=== PATIENT | male | born 1940 | race Caucasian/White ===

== ENCOUNTER 2020-07-22 12:30 | Inpatient (IN) | payer OTHER, BC ==
[~2020-07-22] VITALS: Ht 170.2 cm; Wt 58.4 kg
[~2020-07-22 12:30] MED LIST: ADVIL100 M2; ASPIRIN EC81 M1 PO; CYMBALTA30 MG PO; GINKGO BILOBA40 M1 PO; HYTRIN 5 M5 MG/1 CAP PO; MAGNESIUM400 MG PO; MULTIVITAMINS1 EAC7 PO; OMEGA-3 + VITA1 EAC1 PO
[2020-07-22] MEDS ORDERED: NORVASC10 MG PO (13:06)
[2020-07-22] MEDS ORDERED: CALCIUM500 MG PO (13:06)
[2020-07-22] MEDS ORDERED: DEPAKOTE 250MG250 M1 PO (13:07)
[2020-07-22] MEDS ORDERED: LIPITOR 20 MG T20 M1 PO (13:07)
[2020-07-22] MEDS ORDERED: FAMOTIDINE 20 M20 MG PO (13:07)
[2020-07-22] MEDS ORDERED: DESVENLAFAXINE50 MG PO (13:07)
[2020-07-22] MEDS ORDERED: SUPER THERAVIT1 EACH PO (13:08)
[2020-07-22] MEDS ORDERED: REVIA 50 MG TAB50 M1 PO (13:08)
[2020-07-22] MEDS ORDERED: MAGNESIUM250 M1 PO (13:08)
[2020-07-22] MEDS ORDERED: NAMENDA 10 MG T10 MG PO (13:08)
[2020-07-22] MEDS ORDERED: DESYREL150 MG PO (13:09)
[2020-07-22] MEDS ORDERED: ZOLOFT 50 MG TA50 MG PO (13:09)
[2020-07-22] MEDS ORDERED: CHOLECALCIFEROL1 GM PO (13:09)
[2020-07-22 14:23] VITALS: BP 131/71
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
[2020-07-22 19:10] VITALS: BP 108/74
--- NOTE | 2020-07-23 00:57 | NUR ---
Upon initial assessment at approx 2100 hrs patient observed sitting in day room talking with staff. Patient had fair eye contact with this Nurse and was pleasant. Staff stated that he had been wandering around the unit and had gone into some of his peers' rooms then had to be redirected. Patient can be difficult to redirect at times but has not been aggressive or threatening this shift. He does picker and sorter load and unload objects and put them in his shirt and pants pockets. Items were removed from pockets once patient was changed into scrub pants and t-shift. Pt's belt and personal items placed in his locker. Patient was alert throughout the shift but oriented to self only. He denied any anxiety or depression. He did state that he had pain but was unable to state location or intensity of pain. Due to hx of reported incontinence staff instructed to toilet patient q 2 hrs when awake. Patient was compliant with q 2 hr toileting this shift and had no incontinence. He was able to toilet himself without any assist, just direction. Patient was also medication compliant and takes all of his meds whole with water. He states he has a good appetite and ate a good supper as well as hs snack. He likes to chew on ice. Patient sat in day room and conversed with staff until bed time. He agreed to go to his room and was assisted with changing his clothes. Once in bed he fell asleep fairly quick. As of now 0113 hrs patient has remained asleep. Will continue to monitor and follow plan of care. Q 12 min safety rounds per protocol.
[2020-07-23 05:51] LABS: ANION GAP 9 mmol/L (7-16); BUN 14 mg/dL (7-18); CALCIUM 9.3 mg/dL (8.5-10.1); CHLORIDE 104 mmol/L (98-107); CO2 26 mmol/L (21-32); CREATININE 0.9 mg/dL (0.7-1.3); GLUCOSE 81 mg/dL (74-106); SODIUM 139 mmol/L (136-145)
[2020-07-23 05:52] LABS: POTASSIUM 4.6 mmol/L (3.5-5.1)
--- NOTE | 2020-07-23 06:00 | NUR ---
At 0500 hrs lab came to pt's room for lab draw. Patient awoke confused but cooperative. He agreed to sit on the bed for blood draw. Patient complied to lab draw x 2 separate venipunctures. Lab draw completed by lab staff without incident. Patient was in good mood. He walked to the bathroom to urinate then returned to bed. He has had no incontinence this shift. Patient sleeping at this time 0555 hrs.
[2020-07-23 06:03] LABS: CHOLESTEROL 178 mg/dL (<200); HDL CHOLESTEROL 89 mg/dL (>40); LDL CHOLESTEROL 77 mg/dL (<100); TRIGLYCERIDE 64 mg/dL (<150); VLDL 13 mg/dL (<40)
[2020-07-23 06:09] LABS: SERUM ASSESSMENT Clear
[2020-07-23 10:13] VITALS: BP 135/75
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
--- NOTE | 2020-07-23 19:23 | NUR ---
pt was alert and oriented to self, ASSESSments completed, vss. pt took meds whole, no difficulty noted. AMBULATES WITH A STEADY GAIT. Pt was incontinent x3. Denies si/hi. denies pain. Pt was wandering in the moreno ways and into other pt room. pt pockets food items, and foam cups in his pants. pt was calm and co-operative with care. Ate all his meals. At 1855 pt got very aggressive with staff, pt was redirected. staff walked around the unit with pt to calm pt down. AT THIS TIME PT IS SITTING IN THE DAY ROOM. wILL CONTINUE TO MONITOR.
[2020-07-23 20:20] VITALS: BP 116/72
[2020-07-24 00:06] LABS: GLYCOHEMOGLOBIN (HGB A1C) 5.2 % (4.8-5.6)
--- NOTE | 2020-07-24 00:07 | NUR ---
Initial assessment on 07/23/20 at 2000 hrs. Patient is observed in the day room sitting at table near staff. Patient is alert/oriented to self. He has good eye contact with this Nurse and smiles when greeted by this Nurse. Patient states he remembers this Nurse from the previous pm shift. He denies any complaints of pain. Denies any SI/HI, anxiety or depression. Patient answers assessment questions appropriately, is relaxed and pleasant. It was reported that pt continues to be invasive of peers' space but that behavior not witnessed on this shift. 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 Patient toileted q 2 hrs this shift and he was compliant and continent. After each urination patient spends approx 2 minutes cleaning the toilet seat and area around the toilet with toilet paper. He then washes his hands. Patient walked the halls with staff for awhile this shift, ate his hs snack then agreed to go to bed around 2200 hrs. Patient has been sleeping since that time. Will continue to monitor and follow plan of care. Q 12 min safety checks per protocol.
[2020-07-24 09:48] VITALS: BP 122/87
--- NOTE | 2020-07-24 13:38 | NUR ---
JOSH contacted the Pt's Rediscover Policy Analyst, Erick Calderon [phone]. JOSH left a message requeting a call back
--- NOTE | 2020-07-24 14:08 | NUR ---
0700 ASSUMED CARE OF PATIENT, PATIENT CALM AND ORIENTED TO SELF. PATIENT AMB IN DRIVER WANDERING. FEEDS SELF FOR BREAKFAST. MEDICATION TAKEN WHOLE WITH SOME GUIDANCE. ENTERS OTHER PEERS ROOM AND REDIRECTS WELL. CONTINUES ASKING FOR SHOES. PATIENT FOUND IN ROOMS FIXING BEDS. WILL CONTINUE TO OBSERVE
[2020-07-24 19:57] VITALS: BP 105/71
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
--- NOTE | 2020-07-25 00:30 | NUR ---
MELISSA APPEARS WELL GROOMED AND IS DRESSED APPROPRIATE. HE PRESENTS WITH A FULL AFFECT AND HIS MOOD IS CONGRUENT. WHEN ASKED TO DESCRIBE HIS MOOD HE STATED "WELL, I JUST DO NOT REMEMBER". HE DOES HAVE SOME CONFUSION AND IS ONLY ORIENTED TO PERSON. HE HAS BEEN WALKING THE HALLWAYS AND CAN BE INTRUSIVE AT TIMES. HE IS COOPERATIVE WITH ASSESSMENT AND DENIES ANY SI/HI/AH/VH AT THIS TIME. HE IS MED COMPLIANT WITH ENCOURAGEMENT. HE TAKES HIS MEDS WITH PUDDING WHOLE. HE DID REPEATEDLY SPIT OUT HIS PILLS AND REQUIRED MULTIPLE ENCOURAGEMENTS TO TAKE THE PILLS. MELISSA IS FIXATED ON KEN AND STYROFOAM. HE PLACES ITEMS IN THE WASITBAND OF HIS PANTS. HE CURRENTLY DENIES ANY PAIN AND PRESENTED WITH NO PHYSICAL CHANGES. HIS BED IS IN THE LOWEST POSITION AND HE IS WEARING NON SKID SOCKS. HE DOES OFTEN REPORT HE WOULD LIKE TO HAVE SHOES ON. WILL CONTINUE TO MONITOR AND FOLLOW PLAN OF CARE. Q 12 MIN SAFETY ROUNDS PER PROTOCOL.
[2020-07-25 08:58] VITALS: BP 132/77
[2020-07-25 08:59] VITALS: BP 127/60
--- NOTE | 2020-07-25 19:05 | NUR ---
0700 ASSUMED CARE OF PATIENT, PATIENT IN BED AT THAT TIME. PATIENT AMB WITH STEADY GAIT. MEDICATION TAKEN WHOLE IN AM AND CRUSHED LATER IN DAY. CONFUSED ASKING TO GET OUT OF DOORS. WANDERING INTO OTHER ROOMS. EASILY REDIRECTED, VS STABLE, BS ACTIVE, LS CLEAR. ABM SOFT. PATIENT FOLOWING STAFF. PATIENT FEEDS SELF EATING WELL. PATIENT CONTINENT WHILE ON 2 HR TOILETING SCHEDULE.
--- NOTE | 2020-07-26 02:18 | NUR ---
[facility] AT 1900. AT THIS TIME KERI IS PACING HALLWAYS AND ENTERING ROOMS THAT ARE NOT HIS. PT. REORIENTED TO HIS ROOM AND EDUCATED TO NOT ENTER OTHER ROOMS. KERI APPEARS WELL GROOMED AND IS DRESSED IN HOSPITAL SCRUBS. HE DID HAVE HIS BRIEF ON THE OUTSDIE OF THE SCRUB PANTS AND WAS CHANGED. HE PRESENT WITH CONFUSION AND IS ONLY ORIENTED TO HIMSELF. HE IS COOPERATIVE WITH HIS ASSESSMENT AND NO ACUTE CHANGES WERE NOTED. HE IS MED COMPLIANT BUT DOES REQUIRE ENCOURAGEMENT TO TAKE HIS MEDS. PT CONTINUES TO COLLECT CUPS AND OTHER OBJECTS AND HIDES THEM IN HIS PANTS. WHEN ASKED TO DESCRIBE HIS MOOD HE STATED "FOLLOW ME AND THESE SONS OF LAMBERT ARE HERE. I NEED MY AND SHE IS THE LOVE AND THE ONE THAT LOVES ME". KERI HAS POOR EYE CONTACT HIS REPSONSES ARE OFTEN DELAYED. STAFF CONTINUE TO MONITOR FOR INTRUSIVE BEHAVIORS. WILL CONTINUE TO MONITOR AND FOLLOW PLAN OF CARE. Q 12 MIN CHECKS PER PROTOCOL.
[2020-07-26 09:56] VITALS: BP 102/65
[2020-07-26 10:27] VITALS: BP 98/56
--- NOTE | 2020-07-26 14:11 | NUR ---
3314 RESUMMED CARE FROM OVERNIGHT SHIFT THIS AM, PATIENT SITTING QUIETLY IN DAY ROOM. PATIENT ATE BREAKFAST TOOK MEDICATION WITHOUT INCIDENCE PATIENT ALERT ORIETED TO SELF. PATIENT HAS SOME CONFUSION AND WANDERS INTO OTHER PATIENTS ROOM. PATIENTS ABDOMEN SOFT BOWEL SOUNDS PRESENT PATIENTS LUNGS CLEAR. PATIENT PARTICPATES IN GROUP WILL CONTINUE TO MONITOR PATIENT FOR SAFETY AND BEHAVIORS.
[2020-07-26 19:07] VITALS: BP 137/75
[2020-07-26 20:02] VITALS: BP 137/75
--- NOTE | 2020-07-27 03:47 | NUR ---
Assumed care on 07/26/20 @ 19:15, seated in the day room at a table. Speaks when addressed by staff, watching activity around hhim. A&Ox4 Buckley fall score of 55. continuing VS for CIWA @ 2300 132/76 89 98.6 16 100% At 0300 VS 124/81 87 17 97.4 100% No trembling or sweating noted, denies headache. A&Ox4. No n/v observed nor reported. Retired to bed @ HS, and has slept in bed with bed in low position, bed alarm set. Will continue to monitor as per unit protocol.
--- NOTE | 2020-07-27 03:59 | NUR ---
Assumed care on 07/26/20 @ 19:15, ambulating throughout the mileu, entering others peers rooms, taking others things and putting them in his pants. Intrusive and confused. Both continent and incontinent, needs q2hour toileting. Will continue to monitor as per unit protocol for safety and comfort.
[2020-07-27 09:14] VITALS: BP 121/68
[2020-07-27 09:35] VITALS: BP 121/68
--- NOTE | 2020-07-27 10:42 | NUR ---
1040 RESUMMED CARE FROM OVERNIGHT SHIFT THIS AM, PATIENT ALERT ORIENTED TO SELF ONLY. PATIENT HAS CONFUSION IS SOMETIMES INTRUSIVE GOING IN OTHER PATIENTS ROOM. HE COLLECTS CUPS AND ANYTHING HE CAN FIND AND STUFFS THEM IN IS PANTS. PATIENT UNABLE TO TELL ME ABOUT SI/HI/AH/VH AT PRESENT DUE TO COGNITIVE DO. PATIENTS ABDOMEN SOFT BOWEL SOUNDS PRESENT PATIENTS LUNGS CLEAR. PATIENT HAS NOT SHOWN ANY AGGRESSIVE BEHAVIORS. HE JUST WANDERS AROUND THE UNIT AND TRIES TO OPEN DOORS. WILL CONTINUE TO MONITOR PATIENT FOR SAFETY AND BEHAVIORS.
[2020-07-27 19:55] VITALS: BP 107/66
--- NOTE | 2020-07-28 04:25 | NUR ---
KERI APPEARS WELL GROOMED AND IS DRESSED APPROPRIATE. HE PRESENTS WITH A FULL AFFECT AND DISORGANIZED THOUGHTS. HE IS ALERT TO ONLY PERSON . HE CONTINUES TO WANDER AND TEST DOORS. HE IS INTRUSIVE AND ENTERS OTHERS ROOMS AND REQUIRES FREQUENT REDIRECTIONS. HE IS CONFUSED AND NEEDS PROMPTING TO COMPLETE TASKS. HE CONTINUES TO HECTOR ITEMS IN HIS PANTS. HIS PHYSICAL ASSESSMENT PRESENTED WITH NO ACUTE CHANGES. HEART SOUNDS S1 S2 AND REGUALR, LUNG SOUNDS CLEAR, BOWEL SOUNDS ACTIVE AND ABDOMEN FLAT AND NON TENDER. HE IS MEDICATION COMPLIANT. HE IS ON Q4H VITAL SIGNS WHILE AWAKE FOR INCEASE IN HIS PROPRANOLOL. HE IS ON A Q2H TOLIETING SCHEDULE. WILL CONTINUE TO MONITOR AND FOLLOW PLAN OF CARE. Q 12 MIN CHECKS PER PROTOCOL.
[2020-07-28 09:50] VITALS: BP 104/61
--- NOTE | 2020-07-28 14:58 | NUR ---
0700 ASSUMED CARE OF PATIENT, PATIENT AMB WITH A STEADY GAIT. ATE 100% OF BREAKFAST WITHOUT ASSISTANCE. MEDICATIONS TAKEN WHOLE WITHOUT DIFFICULTY. LS CLEAR, BS ACTIVE. PATIENT ALERT AND ORIENTED X1. PATIENT WANDERS IN DRIVER LOOKING FOR OPEN DOORS. PATIENT EASILY REDIRECTABLE. CONTINUES TO STUFF CUPS AND TOWELS IN PANTS. AMB WITH STEADY GAIT. WILL CONTINUE TO OBSERVE
[2020-07-28 19:44] VITALS: BP 108/56
[2020-07-28 21:30] VITALS: BP 104/61
--- NOTE | 2020-07-29 01:15 | NUR ---
RESUMED PT CARE AT 1900. PT AT THE DINING AREA . HE IS ALERT AND CONFUSED. AMBULATES AND HE DENIES SI/AVH/HI. ABLE TO VERBALIZE SOME NEEDS. LUNGS ARE CLEAR BS ACTIVE X 4 QUAD. NO NEW SKIN ISSUES NOTED THIS SHIFT.HE TOOK HIS MEDS WHOLE AND SNACKS WAS ALSO OFFERED.PT IS CALM, PICKS THINGS AND STORE UP UNDER HIS PANTS. HE WARNDER LATER PART OF THE SHIFT AND WAS REDIRECTED BY STAFF. HE COMPLAINED OF PAINS TO HIS BACK AND PRN TYLENOL WAS GIVEN WITH SOME GOOD EFFECT. HE IS RESTING IN BED NOW WITH BED AT LOW POSTION, LOCKED AND ALARM IN PLACE. NON SKID SOCK IS APPLIED,ROOM IS FREE OF CLUSTERS. HE IS CONTINET OF BOWEL AND BLADDER. STAFF CONTINUES WITH Q 12 MINS CHECKS.
[2020-07-29 09:06] VITALS: BP 110/81
--- NOTE | 2020-07-29 11:33 | NUR ---
Referral sent to [facility]
--- NOTE | 2020-07-29 11:42 | NUR ---
Nutrition followup: Pt continues on [facility] unit with unspecified dementia/behavioral disturbance. Eating very well, 80-100% of meals, 100% supplements/snacks. Receives ensure enlive daily. Recent weight of 128# which is down from reported UBW 140#. had reported some weight loss at memory care due to pt wandering/walking a lot. Unsure if 128# accurate so would recommend obtain new weight. Can also increase ensure to BID due to good intake of the supplement. Pt expected to D/C within 24-48 hrs. Keep low risk.
--- NOTE | 2020-07-29 13:14 | NUR ---
PATIENT HAS BEEN UP, AND OUT ON THE UNIT, WANDERING, COLLECTING ITEMS, PUTTING THEM IN HIS PANT, EASILY REDIRECTED THOUGH. PATIENT TOOK MOST MEDICATION WHOLE, AND CRUSHED THE ONES HE WAS NOT ABLE TO SWALLOW. PATIENT IS EATING MEALS, AND DRINKING FLUID WELL. PATIENT IS ALERT, FORGETFUL, AND PLEASANTLY CONFUSED. PATIENT PICKS-UP PEERS CUPS, AND FOOD, REQUIRES CONSTANT REDIRECTION. PATIENT IS EATING MEALS, AND DRINKING FLUID WELL. PATIENT IS UNABLE TO APPROPRIATELY RESPOND TO ASSESSMENT QUESTIONS OR PARTICIPATE IN GROUP ACTIVITIES DUE TO COGNITIVE IMPAIRMENT. NO SIGN OF ACUTE DISTRESS NOTED AT THIS TIME, WILL CONTINUE TO REDIRECT, AND MONITOR FOR SAFETY.
--- NOTE | 2020-07-29 16:44 | NUR ---
JOSH spoke with the Gosia at [facility]. Gosia informed they would be able to accept the Pt. Also Pt needed a TB test and a COVID test prior to admission. JOSH called the Pt' /DPOA Carline concerning this information. Carline stated she wanted the Pt to go back to [facility] at this time.
--- NOTE | 2020-07-29 16:47 | NUR ---
JOSH contacted [facility] and spoke with LUIS CARLOS Sanchez. JOSH informed that Pt was ready for discharge. Laura asked that JOSH set up transportation. Pt will be discharged 07/31/2020 @ 10 am. Pt will be transported via [facility]. JOSH did inform Pt's DPOA of this information.
[2020-07-29 19:29] VITALS: BP 113/71
[2020-07-29 20:00] VITALS: BP 113/71
[2020-07-29 22:38] VITALS: BP 113/71
--- NOTE | 2020-07-30 02:34 | NUR ---
PATIENT'S CARE STARTED AT 1900. PT IS ALERT AND WANDERING IN THE HALLS. HE DENIES ANY DISCOMFORT, SI/AVH/HI. HE IS UNABLE TO FOLLOW PROMPTS AND CUES. LUNGS ARE CLEAR BS ACTIVE X4 QUAD.INCONTINENT OF BOWEL AND BALDDER. HE TOOK HIS MEDS CRUSHED IN APLE SAUCE.HE CONTINUED TO HECTOR THINGS SUCH CUPS,PAPERS UNDER HIS PANT. HE IS RESTING IN BED AT TIS TIME . BED IS LOW, LOCKED,ALARM ON AND ROOM IS CLEARED OF CLUTTER. STAFF CONTINUE TO MONITOR PT Q 12MINS PER UNIT PROTOCOL.NO AGRESSIVE BEHAVIOUR NOTED THIS SHIFT.
--- NOTE | 2020-07-30 05:27 | NUR ---
PT HAD ONE TIME EPISODE OF VOMITTING AND HE C/O BURNING AROUD HIS THROAT. PRN ZOFRAN GIVEN WITH SOME GOOD EFFECT. CALL TO THE HOSPITAL SPECIALIST TELEPHONE ANSWERING SERVICE OPERATOR . CONTINUE TO MONITOR
[2020-07-30 09:53] VITALS: BP 114/70
[2020-07-30 15:45] VITALS: BP 99/65
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
[2020-07-30 20:20] VITALS: BP 94/57
[2020-07-30 20:50] VITALS: BP 94/57
--- NOTE | 2020-07-31 02:37 | NUR ---
ASSUMED CARE 07/30/20 @ 1900. MR. TORRES WAS AWAKE, ALERT, AND ACTIVELY WANDERING THE UNIT HALLWAYS. HE IS ORIENTED ONLY TO NAME. HE HAS BEEN DIFFICULT TO REDIRECT TO STOP TAKING OBJECTS FROM DAYROOM AND PUTTING THEM IN HIS PANTS OR BRIEF. WHEN ASKED HE DENIES HAVING ANY OBJECTS BUT WHEN WALKING WILL HAVE CUPS FALLING OUT OF HIS PANT LEG. ON TAKING HIS 2100 MEDICATIONS, HE WOULD NOT TAKE THEM WHOLE, CRUSHED MEDS AND PUT IN YOGURT, HE TOOK ONE BITE THEN ATTEMPTED TO PUT THE CUP AND SPOON IN HIS PANTS, WAS ABLE TO REMOVE AND GET HIM TO TAKE HIS MEDICATION. AFTER GETTING TO SLEEP, HAS RESTED WITHOUT INCIDENT, STAFF WILL CONTINUE TO MAKE ROUTINE Q12 ROUNDS AND OBSERVE AND INTERVENE NEEDED.
[2020-07-31] MEDS ORDERED: INDERAL 20 MG T20 M1 PO (09:24)
[2020-07-31] MEDS ORDERED: DEPAKOTE SPRIN125 MG PO (09:26)
[2020-07-31] MEDS ORDERED: TRAZODONE HCL50 MG PO (09:26)
[2020-07-31] MEDS ORDERED: CALTRATE-600 W1 EACH PO (09:27)
[2020-07-31 09:31] VITALS: BP 111/74
--- NOTE | 2020-07-31 09:41 | NUR ---
Alert and orientated to name only. Ambulating without s/o distress. Quieter this AM. Compliant with meds taken in apple sauce with exception of depakote which he rolled around in his mouth and then took out. Depakote changed to sprinkles, mixed in yogurt and he took readily. Breath sounds clear. Reg HR auscultated. Color pink with brisk capillary refill and palpable peripheral pulses. Incontinent of large amt yellow urine per brief. Active bowel sounds over soft, rounded abdomen. No documented BM since
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
== END 2020-07-31 10:30 | DRG 884 ==
LOC: SBH 12:30
PROVIDERS: Hospitalist; ADMIT Psychiatry & Neurology Psychiatry; ATTEND Psychiatry & Neurology Psychiatry
DX: F01.51 Vascular dementia, unspecified severity, with behavioral disturbance (principal); E87.0 Hyperosmolality and hypernatremia; I10 Essential (primary) hypertension; E78.5 Hyperlipidemia, unspecified; E87.6 Hypokalemia; Z88.2 Allergy status to sulfonamides; Z88.8 Allergy status to other drugs, medicaments and biological substances; Z87.891 Personal history of nicotine dependence; Z88.1 Allergy status to other antibiotic agents; Z79.899 Other long term (current) drug therapy
CPT/HCPCS: 10880

== ENCOUNTER 2020-07-22 12:40 | Emergency (ER) | payer OTHER, BC ==
[~2020-07-22] VITALS: Ht 160 cm; Wt 63.5 kg
[2020-07-22] MEDS ORDERED: CALCIUM500 MG PO (13:06)
[2020-07-22] MEDS ORDERED: NORVASC10 MG PO (13:06)
[2020-07-22] MEDS ORDERED: FAMOTIDINE 20 M20 MG PO (13:07)
[2020-07-22] MEDS ORDERED: LIPITOR 20 MG T20 M1 PO (13:07)
[2020-07-22] MEDS ORDERED: DEPAKOTE 250MG250 M1 PO (13:07)
[2020-07-22] MEDS ORDERED: DESVENLAFAXINE50 MG PO (13:07)
[2020-07-22] MEDS ORDERED: SUPER THERAVIT1 EACH PO (13:08)
[2020-07-22] MEDS ORDERED: REVIA 50 MG TAB50 M1 PO (13:08)
[2020-07-22] MEDS ORDERED: NAMENDA 10 MG T10 MG PO (13:08)
[2020-07-22] MEDS ORDERED: MAGNESIUM250 M1 PO (13:08)
[2020-07-22] MEDS ORDERED: CHOLECALCIFEROL1 GM PO (13:09)
[2020-07-22] MEDS ORDERED: DESYREL150 MG PO (13:09)
[2020-07-22] MEDS ORDERED: ZOLOFT 50 MG TA50 MG PO (13:09)
[2020-07-22 13:24] LABS: ABSOLUTE NEUTROPHILS 6.1 thou/uL (1.4-8.2); BASOPHILS 0.5 % (0.0-2.0); EOSINOPHILS 1.1 % (0.0-3.0); HEMATOCRIT 43.4 % (42.0-52.0); HEMOGLOBIN 14.1 gm/dL (14.0-18.0); LYMPHOCYTES 17.5 % (24.0-44.0); MCH 31.5 pg (26.0-34.0); MCHC 32.5 g/dL (28.0-37.0); MCV 96.8 fL (80.0-100.0); MONOCYTES 11.3 % (1.0-8.0); PLATELET COUNT 230 thou/uL (150-400); POLYS 69.6 % (36.0-66.0); RBC 4.49 mil/uL (4.50-6.00); RDW 14.3 % (10.5-14.5); WBC 8.8 thou/uL (4.0-11.0)
[2020-07-22 13:42] LABS: CALCIUM 9.1 mg/dL (8.5-10.1); POTASSIUM 3.1 mmol/L (3.5-5.1)
[2020-07-22 13:45] LABS: ALBUMIN 3.8 g/dL (3.4-5.0); TOTAL BILIRUBIN 0.4 mg/dL (0.2-1.0); TOTAL PROTEIN 7.3 g/dL (6.4-8.2)
[2020-07-22 14:07] VITALS: BP 120/60
--- NOTE | 2020-07-22 16:18 | EKG ---
[address] [place] [address] ELECTROCARDIOGRAM REPORT Name: KERI TORRES [facility] [id number] Admission: 07/22/20 Attend Phys: Discharge: 07/22/20 Date of : 42 Report #: [id number] [facility] ED Test Date: 2020-07-22 Test Time: 13:01:18 Pat Name: KERI TORRES Department: Room: Gender: Manager Consumer: BETSY : 1940 Requested By: Shantel Polanco Order Number: [id number] MD: Jaren Chappell Measurements Intervals [place] Rate: 77 P: 64 IL: 156 QRS: 11 QRSD: 89 T: 60 QT: 390 QTc: 442 Interpretive Statements Sinus rhythm Compared to ECG 11/04/2011 15:45:26 No significant changes Electronically Signed On 07-22-2020 16:18:43 CDT by Jaren Chappell [email or web address] <ELECTRONICALLY SIGNED> By: Jaren Chappell MD, [facility] 07/22/20 1618 1301 1301 Jaren Chappell MD, FACC /EPI
== END 2020-07-22 14:05 ==
LOC: ER 12:40
PROVIDERS: Physician Assistant
DX: F03.91 Unspecified dementia, unspecified severity, with behavioral disturbance (principal); Z20.822 Contact with and (suspected) exposure to COVID-19; E87.6 Hypokalemia; F32.9 Major depressive disorder, single episode, unspecified; I10 Essential (primary) hypertension; Z87.891 Personal history of nicotine dependence; Z88.1 Allergy status to other antibiotic agents; Z88.2 Allergy status to sulfonamides; Z79.899 Other long term (current) drug therapy; Z79.82 Long term (current) use of aspirin